=== PATIENT | male | born 1990 | race Hispanic/Latino ===

== ENCOUNTER → 2024-11-15 | Outpatient (REF) | LOC: M PLAIMG 08:57 | PROVIDERS: ATTEND Internal Medicine | DX: M25.571 Pain in right ankle and joints of right foot (principal); M25.572 Pain in left ankle and joints of left foot; M25.561 Pain in right knee; M25.562 Pain in left knee; M25.541 Pain in joints of right hand; M25.542 Pain in joints of left hand; R06.02 Shortness of breath; J32.9 Chronic sinusitis, unspecified ==